=== PATIENT | female | born 1995 | race Two or more races ===

== ENCOUNTER 2018-06-22 17:02 | Inpatient (IN) | payer SELFPAY ==
[2018-06-22] MEDS ORDERED: Ondansetron 4 MG/2 ML SDV IVPUSH PRN (17:09)
[2018-06-22] MEDS ORDERED: Nalbuphine 20 MG/ML 1 ML Syringe IVPUSH PRN (17:09)
[2018-06-22] MEDS ORDERED: Sodium Chloride 0.9% 10 ML Syringe FLUSH PRN (17:09)
[2018-06-22] MEDS ORDERED: Ampicillin 2 GM in Sodium Chloride 0.9% 100 ML IV ONE (17:15)
[2018-06-22] MEDS ORDERED: Lactated Ringers 1,000 ML IV SCH (17:15)
[2018-06-22] MEDS ORDERED: Oxytocin/Lactated Ringers 10 UNIT/1,000 ML BAG IV SCH ×2 (17:15→21:45)
[2018-06-22] MEDS ORDERED: Ampicillin 2 GM AdvVial IV ONE (17:20)
--- NOTE | 2018-06-22 17:42 | PCM.LDHP ---
L&D History of Present Illness - General Date of Service: 06/22/18 Admit Problem/Dx: Patient Status Order with Admit Dx/Problem 06/22/18 17:09 Patient Status [ADT] Routine Admission Diagnosis/Problem Admission Diagnosis/Problem Normal labor Source of Information: Patient History Limitations: Reports: No Limitations - History of Present Illness Introduction:: Patient is a 23 y/o at 38 1/7 wks who presents in labor. Contractions started earlier today. No bleeding or LOF. No other concerns - Related Data Allergies/Adverse Reactions: Allergies Allergy/AdvReac Type Severity Reaction Status Date / Time No Known Allergies Allergy Verified 04/08/14 16:47 Home Medications: Home Meds Acetaminophen [Tylenol] 650 mg PO Q4H PRN #30 tablet 06/10/14 [Rx] Benzocaine/Menthol [Dermoplast Pain Relief [place]] 1 applic TOP ASDIRECTED PRN # 30 canister 06/10/14 [Rx] Docusate Sodium [Colace] 100 mg PO BID PRN #30 cap 06/10/14 [Rx] Ibuprofen [Motrin] 600 mg PO Q4H PRN #50 tablet 06/10/14 [Rx] Lanolin [Lansinoh HPA] 1 applic TOP ASDIRECTED PRN #50 crm 06/10/14 [Rx] Vit with Ca/FA/Iron [ Plus Iron] 1 each PO DAILY #100 tablet [Rx] Witch Mary Ellen [Tucks] 1 pad TOP ASDIRECTED PRN #50 pad 06/10/14 [Rx] Past Medical History - Past Health History Medical/Surgical History: Denies Medical/Surgical History RN WELLNESS History: Reports: : 3 Para: 2 LMP (Approximate): Social & Family History - Tobacco Use Smoking Status *Q: Never Smoker - Alcohol Use Alcohol Use History: No - Recreational Drug Use Recreational Drug Use: No H&P Review of Systems - Review of Systems: Review Of Systems: See Below General: Reports: No Symptoms Pulmonary: Reports: No Symptoms Cardiovascular: Reports: No Symptoms Gastrointestinal: Reports: No Symptoms Genitourinary: Reports: No Symptoms Musculoskeletal: Reports: No Symptoms Psychiatric: Reports: No Symptoms Neurological: Reports: No Symptoms L&D Exam - Exam Exam: See Below - OB Specific Contraction Intensity: Moderate to Strong Movement: Active Heart Tones: Present Heart Tones per Min: 135 Heart Rate (FHR) Variability: Moderate (6-25 bmp) Presentation: Vertex - Moreland Score Moreland Score Cervix Position: Anterior Moreland Score Consistency: Soft Moreland Score Effacement: >80% Moreland Score Dilation: > 5 cm Moreland Score Infant's Station: -1 ,0 Moreland Score Total: 12 - Exam General: Alert, Oriented, Cooperative Lungs: Clear to Auscultation, Normal Respiratory Effort Cardiovascular: Regular Rate, Regular Rhythm GI/Abdominal Exam: Soft, Non-Tender Genitourinary: Normal external exam Extremities: Normal Inspection Skin: Warm, Dry, Intact - Patient Data Lab Results Last 24 hrs: Laboratory Results - last 24 hr 06/22/18 Range/Units 17:26 WBC 8.44 (3.98-10.04) K/mm3 RBC 4.09 (3.98-5.22) M/mm3 Hgb 12.3 (11.2-15.7) gm/L Hct 36.8 (34.1-44.9) % MCV 90.0 (79.4-94.8) fl MCH 30.1 (25.6-32.2) pg MCHC 33.4 (32.2-35.5) g/dl RDW Std Deviation 41.9 (36.4-46.3) fL Plt Count 174 L (182-369) K/mm3 MPV 11.0 (9.4-12.3) fl Result Diagrams: 06/22/18 17:26 - Problem List (1) 38 weeks gestation of SNOMED Code(s): 61062147 ICD Code: Z3A.38 - 38 WEEKS GESTATION OF Status: Acute Current Visit: Yes (2) Normal labor SNOMED Code(s): 82978717 ICD Code: O80 - ENCOUNTER FOR FULL-TERM UNCOMPLICATED DELIVERY; Z37.9 - OUTCOME OF DELIVERY, UNSPECIFIED Status: Acute Current Visit: Yes (3) GBS (group B Streptococcus carrier), +RV culture, currently SNOMED Code(s): 7207585010256, 095297370, 7859503629132 ICD Code: O99.820 - STREPTOCOCCUS B CARRIER STATE COMPLICATING Status: Acute Current Visit: Yes Problem List Initiated/Reviewed/Updated: Yes Orders Last 24hrs: Active Orders 24 hr Category Date Time Status Patient Status [ADT] Routine ADT 06/22/18 17:09 Active Activity as Tolerated [RC] PFP Care 06/22/18 17:09 Active Communication Order [RC] ASDIRECTED Care 06/22/18 17:09 Active Heart Tones [RC] ASDIRECTED Care 06/22/18 17:09 Active Non Stress Test [RC] PER UNIT ROUTINE Care 06/22/18 17:09 Active Notify Provider [RC] PFP Care 06/22/18 17:09 Active Notify Provider [RC] PRN Care 06/22/18 17:09 Active Peripheral IV Care [RC] . DIRECTED Care 06/22/18 17:09 Active Vital Signs [RC] PER UNIT ROUTINE Care 06/22/18 17:09 Active Regular Diet [DIET] Diet 06/22/18 Dinner Active RAPID PLASMA REAGIN,RPR [CHEM] Routine Lab 06/22/18 17:26 Received TYPE AND SCREEN [BBK] Routine Lab 06/22/18 17:26 Received Ampicillin 1 gm Med 06/22/18 21:15 Active Sodium Chloride 0.9% [Normal Saline] 100 ml IV Q4H Ampicillin 2 gm Med 06/22/18 17:15 Active Sodium Chloride 0.9% [Normal Saline] 100 ml IV ONETIME Lactated Ringers [Ringers, Lactated] 1,000 ml Med 06/22/18 17:15 Active IV ASDIRECTED Nalbuphine [Nubain] Med 06/22/18 17:09 Active 10 mg IVPUSH Q2H PRN Ondansetron [Zofran] Med 06/22/18 17:09 Active 4 mg IVPUSH Q4H PRN Oxytocin/Lactated Ringers [Pitocin in LR 10 Units/1,000 Med 06/22/18 17:15 Active ML] 10 unit in 1,000 ml IV .CONTINUOUS Sodium Chloride 0.9% [Saline Flush] Med 06/22/18 17:09 Active 10 ml FLUSH ASDIRECTED PRN Electronic Heart Tones Ext w TOCO [WOMSER] Oth 06/22/18 17:09 Ordered Routine Electronic Heart Tones Internal [WOMSER] Per Unit Oth 06/22/18 17:09 Ordered Routine Peripheral IV Insertion Adult [OM.PC] Routine Oth 06/22/18 17:09 Ordered Resuscitation Status Routine Resus Stat 06/22/18 17:09 Ordered Medication Orders Lactated Ringer's (Ringers, Lactated) 1,000 mls @ 100 mls/hr IV ASDIRECTED MICHELLE Oxytocin/Lactated Ringer's (Pitocin In Lr 10 Units/1,000 Ml) 10 unit in 1,000 mls @ 500 mls/hr IV .CONTINUOUS MICHELLE Ampicillin Sodium 2 gm/ Sodium (Chloride) 100 mls @ 200 mls/hr IV ONETIME ONE Stop: 06/22/18 17:44 Ampicillin Sodium 1 gm/ Sodium (Chloride) 100 mls @ 200 mls/hr IV Q4H MICHELLE Nalbuphine HCl (Nubain) 10 mg IVPUSH Q2H PRN PRN Reason: pain Ondansetron HCl (Zofran) 4 mg IVPUSH Q4H PRN PRN Reason: Nausea/Vomiting Sodium Chloride (Saline Flush) 10 ml FLUSH ASDIRECTED PRN PRN Reason: Keep Vein Open Assessment/Plan Comment:: 23 y/o at 38 1/7 wks who presents in labor * Labs on admission * Will start Ampicillin for GBS positive status * Pain control per patient preference * Anticipate
--- NOTE | 2018-06-22 18:55 | PCM.DEL ---
L & D Note - General Info Date of Service: 06/22/18 - Delivery Note Labor: Spontaneous Delivery Outcome: Livebirth Delivery Method: Spontaneous Vaginal Delivery-Single Delivery Mode: Spontaneous Presentation: Left Occiput Anterior (ANGELLA) Nuchal Cord: Present (Not reduced as delivered quickly) Anesthesia Type: None Amniotic Fluid Description: Clear Episiotomy Type: None Laceration: None Placenta: Intact, Spontaneous Cord: 3 Vessels Estimated Blood Loss: 200 Resuscitation Needed: Yes : Bulb Syringe, Stimulated, Warmed, Vantage Used, Warmer Used Score 1 min: 9 Score 5 min: 9 Delivery Comments (Free Text/Narrative):: Patient found to be complete and began pushing. With maternal pushing effort head delivered from an ANGELLA presentation. Nuchal cord present, but baby quickly expelled and so not reduced. Infant placed on maternal abdomen. Cord clamped and cut. Cord blood obtained. Placenta allowed time to separate and expelled intact. Inspection of the perineum showed no lacerations - General Info Date of Service: 06/22/18 - Patient Data Vitals - Most Recent: Last Vital Signs Temp 37.1 C 06/22/18 17:37 Pulse 78 06/22/18 17:37 Resp 16 06/22/18 17:37 BP 132/76 06/22/18 17:37 Pulse Ox Weight - Most Recent: 92.215 kg Lab Results Last 24 Hours: Laboratory Results - last 24 hr 06/22/18 06/22/18 Range/Units 17:26 17:26 WBC 8.44 (3.98-10.04) K/mm3 RBC 4.09 (3.98-5.22) M/mm3 Hgb 12.3 (11.2-15.7) gm/L Hct 36.8 (34.1-44.9) % MCV 90.0 (79.4-94.8) fl MCH 30.1 (25.6-32.2) pg MCHC 33.4 (32.2-35.5) g/dl RDW Std Deviation 41.9 (36.4-46.3) fL Plt Count 174 L (182-369) K/mm3 MPV 11.0 (9.4-12.3) fl Blood Type O POSITIVE Gel Antibody Screen Negative Med Orders - Current: Current Medications Lactated Ringer's (Ringers, Lactated) 1,000 mls @ 100 mls/hr IV ASDIRECTED MICHELLE Oxytocin/Lactated Ringer's (Pitocin In Lr 10 Units/1,000 Ml) 10 unit in 1,000 mls @ 500 mls/hr IV .CONTINUOUS MICHELLE Ampicillin Sodium 1 gm/ Sodium (Chloride) 100 mls @ 200 mls/hr IV Q4H MICHELLE Nalbuphine HCl (Nubain) 10 mg IVPUSH Q2H PRN PRN Reason: pain Ondansetron HCl (Zofran) 4 mg IVPUSH Q4H PRN PRN Reason: Nausea/Vomiting Sodium Chloride (Saline Flush) 10 ml FLUSH ASDIRECTED PRN PRN Reason: Keep Vein Open Discontinued Medications Ampicillin Sodium (Ampicillin) Confirm Administered Dose 2 gm IV .STK-MED ONE Stop: 06/22/18 17:21 Ampicillin Sodium 2 gm/ Sodium (Chloride) 100 mls @ 200 mls/hr IV ONETIME ONE Stop: 06/22/18 17:44 Last Admin: 06/22/18 17:43 Dose: 200 mls/hr - Problem List & Annotations (1) 38 weeks gestation of SNOMED Code(s): 95310680 Code(s): Z3A.38 - 38 WEEKS GESTATION OF Status: Acute Current Visit: Yes (2) Normal labor SNOMED Code(s): 51238330 Code(s): O80 - ENCOUNTER FOR FULL-TERM UNCOMPLICATED DELIVERY; Z37.9 - OUTCOME OF DELIVERY, UNSPECIFIED Status: Acute Current Visit: Yes (3) GBS (group B Streptococcus carrier), +RV culture, currently SNOMED Code(s): 1342255382633, 572397058, 5257264006938 Code(s): O99.820 - STREPTOCOCCUS B CARRIER STATE COMPLICATING Status: Acute Current Visit: Yes (4) Vaginal delivery SNOMED Code(s): 349952072 Code(s): O80 - ENCOUNTER FOR FULL-TERM UNCOMPLICATED DELIVERY Status: Acute Current Visit: Yes - Problem List Review Problem List Initiated/Reviewed/Updated: Yes - My Orders Last 24 Hours: My Active Orders 06/22/18 17:09 Patient Status [ADT] Routine Activity as Tolerated [RC] PFP Communication Order [RC] ASDIRECTED Heart Tones [RC] ASDIRECTED Non Stress Test [RC] PER UNIT ROUTINE Notify Provider [RC] PFP Notify Provider [RC] PRN Peripheral IV Care [RC] . DIRECTED Vital Signs [RC] PER UNIT ROUTINE Nalbuphine [Nubain] 10 mg IVPUSH Q2H PRN Ondansetron [Zofran] 4 mg IVPUSH Q4H PRN Sodium Chloride 0.9% [Saline Flush] 10 ml FLUSH ASDIRECTED PRN Electronic Heart Tones Ext w TOCO [WOMSER] Routine Electronic Heart Tones Internal [WOMSER] Per Unit Routine Peripheral IV Insertion Adult [OM.PC] Routine Resuscitation Status Routine 06/22/18 17:15 Lactated Ringers [Ringers, Lactated] 1,000 ml IV ASDIRECTED Oxytocin/Lactated Ringers [Pitocin in LR 10 Units/1,000 ML] 10 unit in 1,000 ml IV .CONTINUOUS 06/22/18 17:26 RAPID PLASMA REAGIN,RPR [CHEM] Routine 06/22/18 21:15 Ampicillin 1 gm Sodium Chloride 0.9% [Normal Saline] 100 ml IV Q4H 06/22/18 Dinner Regular Diet [DIET] - Assessment Assessment:: 23 y/o G3 now P3003 PPD#0 from at 38 1/7 wks - Plan Plan:: * Routine cares * Encourage breast feeding * Discharge home in 2 days
[2018-06-22] MEDS ORDERED: Lanolin 100% Cream 7 GM Tube TOP PRN (19:49)
[2018-06-22] MEDS ORDERED: Acetaminophen 325 MG Tab PO PRN (19:49)
[2018-06-22] MEDS ORDERED: Witch Hazel Medicated Pads 100/Jar TOP PRN (19:49)
[2018-06-22] MEDS ORDERED: Docusate Sodium 100 MG Cap PO PRN (19:49)
[2018-06-22] MEDS ORDERED: Benzocaine/Menthol 20%-0.5% Spray 56 GM Canister TOP PRN (19:49)
[2018-06-22] MEDS: Ibuprofen 600 MG Tab PO PRN (19:58)
[2018-06-22] MEDS ORDERED: Oxytocin/Lactated Ringers 10 UNIT/1,000 ML BAG IV ONE ×2 (20:51→20:54)
[2018-06-22] MEDS ORDERED: Methylergonovine 0.2 MG/1 ML Amp ONE (21:08)
[2018-06-22] MEDS ORDERED: Ampicillin 1 GM in Sodium Chloride 0.9% 100 ML IV SCH (21:15)
[2018-06-22] MEDS ORDERED: fentaNYL 100 MCG/2 ML SDV ONE (21:21)
[2018-06-22] MEDS ORDERED: Methylergonovine 0.2 MG/1 ML Amp IM STA (21:30)
[2018-06-22] MEDS ORDERED: fentaNYL 100 MCG/2 ML SDV IVPUSH ONE (21:30)
--- NOTE | 2018-06-22 21:34 | PCM.SN ---
- Free Text/Narrative Note: 2114 Called by nursing due to steady bleeding from patient on fundal assessments. Delivery was about 2.5 hours ago. Nursing already hanging 2nd bag of pitocin. Presented to bedside and gave patient 50 mcg of fentanyl. Examination showed palm sized amount of clot in cervix, uterus otherwise seems to be well contracted. Given IM dose of methergine. Will continue to watch closely and see if further uterotonics warranted. Marilin Luna MD
[2018-06-22] MEDS ORDERED: Carboprost Tromethamine 250 MCG/1 ML Amp ONE (21:42)
[2018-06-22] MEDS ORDERED: Carboprost Tromethamine 250 MCG/1 ML Amp IM ONE (21:43)
[2018-06-22] MEDS ORDERED: Acetaminophen/oxyCODONE 325-5 MG Tab PO PRN (22:48)
[2018-06-23] MEDS: Ibuprofen 600 MG Tab PO PRN ×3 (03:55→17:49)
--- NOTE | 2018-06-23 06:52 | PCM.PNPP ---
- General Info Date of Service: 06/23/18 Functional Status: Reports: Pain Controlled, Tolerating Diet, Ambulating, Urinating - Review of Systems General: Reports: No Symptoms Pulmonary: Reports: No Symptoms Cardiovascular: Reports: No Symptoms Gastrointestinal: Reports: No Symptoms Genitourinary: Reports: No Symptoms Musculoskeletal: Reports: No Symptoms Neurological: Reports: No Symptoms - Patient Data Vital Signs - Most Recent: Last Vital Signs Temp 36.0 C 06/23/18 03:00 Pulse 63 06/23/18 03:00 Resp 17 06/23/18 03:00 BP 130/88 06/23/18 03:00 Pulse Ox 98 06/23/18 03:00 Weight - Most Recent: 92.215 kg I&O - Last 24 Hours: Intake & Output 06/22/18 06/22/18 06/23/18 14:59 22:59 06:59 Intake Total 1000 1000 Balance 1000 1000 Lab Results - Last 24 Hours: Laboratory Results - last 24 hr 06/22/18 06/22/18 Range/Units 17:26 17:26 WBC 8.44 (3.98-10.04) K/mm3 RBC 4.09 (3.98-5.22) M/mm3 Hgb 12.3 (11.2-15.7) gm/L Hct 36.8 (34.1-44.9) % MCV 90.0 (79.4-94.8) fl MCH 30.1 (25.6-32.2) pg MCHC 33.4 (32.2-35.5) g/dl RDW Std Deviation 41.9 (36.4-46.3) fL Plt Count 174 L (182-369) K/mm3 MPV 11.0 (9.4-12.3) fl Blood Type O POSITIVE Gel Antibody Screen Negative Med Orders - Current: Current Medications Acetaminophen (Tylenol) 650 mg PO Q4H PRN PRN Reason: mild pain or fever Benzocaine/Menthol (Dermoplast Pain Relief [place]) 0 gm TOP ASDIRECTED PRN PRN Reason: Perineal Comfort Measure Docusate Sodium (Colace) 100 mg PO BID PRN PRN Reason: Constipation Emollient Ointment (Lansinoh Hpa) 0 gm TOP ASDIRECTED PRN PRN Reason: Sore Nipples Oxytocin/Lactated Ringer's (Pitocin In Lr 10 Units/1,000 Ml) 10 unit in 1,000 mls @ 500 mls/hr IV TITRATE MICHELLE; Protocol Last Titration: 06/22/18 22:00 Dose: 125 mls/hr, 125 mls/hr Ibuprofen (Motrin) 600 mg PO Q6H PRN PRN Reason: Mild pain or fever Last Admin: 06/23/18 03:55 Dose: 600 mg Oxycodone/Acetaminophen (Percocet 325-5 Mg) 2 tab PO Q4H PRN PRN Reason: Pain (severe 7-10) Last Admin: 06/22/18 22:59 Dose: 2 tab Witch Mary Ellen (Tucks) 1 pad TOP ASDIRECTED PRN PRN Reason: Hemorrhoid pain Discontinued Medications Carboprost Tromethamine (Hemabate Ds) Confirm Administered Dose 250 mcg .ROUTE .STK-MED ONE Stop: 06/22/18 21:43 Last Admin: 06/22/18 22:30 Dose: Not Given Carboprost Tromethamine (Hemabate Ds) 250 mcg IM ONETIME ONE Stop: 06/22/18 21:44 Last Admin: 06/22/18 21:45 Dose: 250 mcg Fentanyl (Sublimaze) Confirm Administered Dose 100 mcg .ROUTE .STK-MED ONE Stop: 06/22/18 21:22 Last Admin: 06/22/18 22:30 Dose: Not Given Fentanyl (Sublimaze) 50 mcg IVPUSH ONETIME ONE Stop: 06/22/18 21:31 Last Admin: 06/22/18 21:25 Dose: 50 mcg Lactated Ringer's (Ringers, Lactated) 1,000 mls @ 100 mls/hr IV ASDIRECTED MICHELLE Oxytocin/Lactated Ringer's (Pitocin In Lr 10 Units/1,000 Ml) 10 unit in 1,000 mls @ 500 mls/hr IV .CONTINUOUS MICHELLE Last Admin: 06/22/18 18:44 Dose: 500 mls/hr Ampicillin Sodium 2 gm/ Sodium (Chloride) 100 mls @ 200 mls/hr IV ONETIME ONE Stop: 06/22/18 17:44 Last Admin: 06/22/18 17:43 Dose: 200 mls/hr Ampicillin Sodium 1 gm/ Sodium (Chloride) 100 mls @ 200 mls/hr IV Q4H MICHELLE Oxytocin/Lactated Ringer's (Pitocin In Lr 10 Units/1,000 Ml) Confirm Administered Dose 10 unit in 1,000 mls @ as directed IV .STK-MED ONE Stop: 06/22/18 20:52 Last Admin: 06/22/18 22:28 Dose: Not Given Oxytocin/Lactated Ringer's (Pitocin In Lr 10 Units/1,000 Ml) Confirm Administered Dose 10 unit in 1,000 mls @ as directed IV .STK-MED ONE Stop: 06/22/18 20:55 Last Admin: 06/22/18 22:28 Dose: Not Given Methylergonovine Maleate (Methergine) Confirm Administered Dose 0.2 mg .ROUTE .STK-MED ONE Stop: 06/22/18 21:09 Last Admin: 06/22/18 22:29 Dose: Not Given Methylergonovine Maleate (Methergine) 0.2 mg IM NOW STA Stop: 06/22/18 21:31 Last Admin: 06/22/18 21:12 Dose: 0.2 mg Nalbuphine HCl (Nubain) 10 mg IVPUSH Q2H PRN PRN Reason: pain Ondansetron HCl (Zofran) 4 mg IVPUSH Q4H PRN PRN Reason: Nausea/Vomiting Sodium Chloride (Saline Flush) 10 ml FLUSH ASDIRECTED PRN PRN Reason: Keep Vein Open - Infant Interaction Infant Disposition, : in Room with Family Infant Interaction: Holding Feeding: Breastfed ; Nursed Well Support Person: Significant Other - Recovery Exam Fundal Tone: Firm Fundal Level: At Umbilicus Fundal Placement: Midline Lochia Amount: Small Lochia Color: Rubra/Red Perineum Description: Intact, Minimal Bruising/Swelling Episiotomy/Laceration: None Bladder Status: Voiding Urinary Elimination: Other (see below) Other Urinary Elimination, : XLG void (#3 pp void) - Exam General: Alert, Oriented, Cooperative GI/Abdominal Exam: Soft, Non-Tender Extremities: Normal Inspection Skin: Warm, Dry, Intact - Problem List & Annotations (1) 38 weeks gestation of SNOMED Code(s): 83022562 Code(s): Z3A.38 - 38 WEEKS GESTATION OF Status: Acute Current Visit: Yes (2) Normal labor SNOMED Code(s): 50454750 Code(s): O80 - ENCOUNTER FOR FULL-TERM UNCOMPLICATED DELIVERY; Z37.9 - OUTCOME OF DELIVERY, UNSPECIFIED Status: Acute Current Visit: Yes (3) GBS (group B Streptococcus carrier), +RV culture, currently SNOMED Code(s): 8449130316165, 128772461, 7547728989640 Code(s): O99.820 - STREPTOCOCCUS B CARRIER STATE COMPLICATING Status: Acute Current Visit: Yes (4) Vaginal delivery SNOMED Code(s): 098395542 Code(s): O80 - ENCOUNTER FOR FULL-TERM UNCOMPLICATED DELIVERY Status: Acute Current Visit: Yes - Problem List Review Problem List Initiated/Reviewed/Updated: Yes - My Orders Last 24 Hours: My Active Orders 06/22/18 17:09 Heart Tones [RC] ASDIRECTED Vital Signs [RC] PER UNIT ROUTINE Resuscitation Status Routine 06/22/18 17:26 RAPID PLASMA REAGIN,RPR [CHEM] Routine 06/22/18 19:49 Activity as Tolerated [RC] PER UNIT ROUTINE Vital Signs [RC] 03,09,15,21 Acetaminophen [Tylenol] 650 mg PO Q4H PRN Benzocaine/Menthol [Dermoplast Pain Relief [place]] See Dose Instructions TOP ASDIRECTED PRN Docusate Sodium [Colace] 100 mg PO BID PRN Ibuprofen [Motrin] 600 mg PO Q6H PRN Lanolin [Lansinoh HPA] See Dose Instructions TOP ASDIRECTED PRN Witch Mary Ellen [Tucks] 1 pad TOP ASDIRECTED PRN Assess Lochia [WOMSER] Per Unit Routine Assess Uterine Involution [WOMSER] Per Unit Routine Breast Pump [WOMSER] Per Unit Routine Heat Therapy [OM.PC] PRN Ice Therapy [OM.PC] Per Unit Routine Perineal Care [OM.PC] Per Unit Routine Peripheral IV Discontinue [OM.PC] Routine Sitz Bath [OM.PC] Per Unit Routine 06/22/18 21:45 Oxytocin/Lactated Ringers [Pitocin in LR 10 Units/1,000 ML] 10 unit in 1,000 ml IV TITRATE 06/22/18 22:48 Acetaminophen/oxyCODONE [Percocet 325-5 MG] 2 tab PO Q4H PRN 06/22/18 Dinner Regular Diet [DIET] 06/23/18 19:49 Heat Therapy [OM.PC] PRN - Assessment Assessment:: 23 y/o G3 now P3003 PPD#1 from at 38 1/7 wks - Plan Plan:: * Routine cares * Encourage breast feeding * Bleeding improved with uterotonics overnight. Continue to monitor * Discharge home tomorrow
[2018-06-24] MEDS: Ibuprofen 600 MG Tab PO PRN ×2 (06:51→16:14)
--- NOTE | 2018-06-24 06:59 | PCM.DCSUM1 ---
Discharge Summary - Discharge Data Discharge Date: 06/24/18 Discharge Disposition: Home, Self-Care 01 Condition: Good - Discharge Diagnosis/Problem(s) (1) 38 weeks gestation of SNOMED Code(s): 55601495 ICD Code: Z3A.38 - 38 WEEKS GESTATION OF Status: Acute Current Visit: Yes (2) Normal labor SNOMED Code(s): 13964619 ICD Code: O80 - ENCOUNTER FOR FULL-TERM UNCOMPLICATED DELIVERY; Z37.9 - OUTCOME OF DELIVERY, UNSPECIFIED Status: Acute Current Visit: Yes (3) GBS (group B Streptococcus carrier), +RV culture, currently SNOMED Code(s): 5888658937561, 390000753, 9954872245422 ICD Code: O99.820 - STREPTOCOCCUS B CARRIER STATE COMPLICATING Status: Acute Current Visit: Yes (4) Vaginal delivery SNOMED Code(s): 561949492 ICD Code: O80 - ENCOUNTER FOR FULL-TERM UNCOMPLICATED DELIVERY Status: Acute Current Visit: Yes - Patient Summary/Data Complications: None Consults: None Recommended Follow-up Testing/Procedures: Follow up with Dr. Craft in 2 weeks Hospital Course: Patient is a 23 y/o at 38 1/7 wks who presented in active labor. She made quick progress to complete dilation and underwent an uncomplicated . See delivery note. About 2 hours after delivery had a slight increase in bleeding. This was managed with IM methergine and hemabate. She otherwise did well and was discharged home on PPD#2 - Patient Instructions Diet: Regular Diet as Tolerated Activity: As Tolerated Activity, Other: Pelvic Rest for 3 weeks Driving: May Drive Today Showering/Bathing: May Shower Showering/Bathing, Other: May bathe Notify Provider of: Fever, Increased Pain, Swelling and Redness, Drainage, Nausea and/or Vomiting - Discharge Plan *PRESCRIPTION DRUG MONITORING PROGRAM REVIEWED*: Not Applicable *COPY OF PRESCRIPTION DRUG MONITORING REPORT IN PATIENT GUNNER: Not Applicable Home Medications: Home Meds Docusate Sodium [Colace] 100 mg PO BID PRN #30 cap 06/10/14 [Rx] Ibuprofen [Motrin] 600 mg PO Q4H PRN #50 tablet 06/10/14 [Rx] Vit with Ca/FA/Iron [ Plus Iron] 1 each PO DAILY #100 tablet [Rx] Referrals: Raleigh Craft MD [Primary Care Provider] - (2 weeks for check ) - Discharge Summary/Plan Comment DC Time >30 min.: No - Patient Data Vitals - Most Recent: Last Vital Signs Temp 36.6 C 06/24/18 03:00 Pulse 72 06/24/18 03:00 Resp 16 06/24/18 03:00 BP 97/58 L 06/24/18 03:00 Pulse Ox 100 06/24/18 03:00 Weight - Most Recent: 92.215 kg I&O - Last 24 hours: Intake & Output 06/23/18 06/23/18 06/24/18 14:59 22:59 06:59 Intake Total 220 Balance 220 Lab Results - Last 24 hrs: Laboratory Results - last 24 hr 06/22/18 Range/Units 17:26 RPR Non-reactive (NONREACTIVE) Med Orders - Current: Current Medications Acetaminophen (Tylenol) 650 mg PO Q4H PRN PRN Reason: mild pain or fever Benzocaine/Menthol (Dermoplast Pain Relief [place]) 0 gm TOP ASDIRECTED PRN PRN Reason: Perineal Comfort Measure Docusate Sodium (Colace) 100 mg PO BID PRN PRN Reason: Constipation Emollient Ointment (Lansinoh Hpa) 0 gm TOP ASDIRECTED PRN PRN Reason: Sore Nipples Oxytocin/Lactated Ringer's (Pitocin In Lr 10 Units/1,000 Ml) 10 unit in 1,000 mls @ 500 mls/hr IV TITRATE MICHELLE; Protocol Last Titration: 06/22/18 22:00 Dose: 125 mls/hr, 125 mls/hr Ibuprofen (Motrin) 600 mg PO Q6H PRN PRN Reason: Mild pain or fever Last Admin: 06/24/18 06:51 Dose: 600 mg Oxycodone/Acetaminophen (Percocet 325-5 Mg) 2 tab PO Q4H PRN PRN Reason: Pain (severe 7-10) Last Admin: 06/22/18 22:59 Dose: 2 tab Witch Mary Ellen (Tucks) 1 pad TOP ASDIRECTED PRN PRN Reason: Hemorrhoid pain Discontinued Medications Carboprost Tromethamine (Hemabate Ds) Confirm Administered Dose 250 mcg .ROUTE .STK-MED ONE Stop: 06/22/18 21:43 Last Admin: 06/22/18 22:30 Dose: Not Given Carboprost Tromethamine (Hemabate Ds) 250 mcg IM ONETIME ONE Stop: 06/22/18 21:44 Last Admin: 06/22/18 21:45 Dose: 250 mcg Fentanyl (Sublimaze) Confirm Administered Dose 100 mcg .ROUTE .STK-MED ONE Stop: 06/22/18 21:22 Last Admin: 06/22/18 22:30 Dose: Not Given Fentanyl (Sublimaze) 50 mcg IVPUSH ONETIME ONE Stop: 06/22/18 21:31 Last Admin: 06/22/18 21:25 Dose: 50 mcg Lactated Ringer's (Ringers, Lactated) 1,000 mls @ 100 mls/hr IV ASDIRECTED MICHELLE Oxytocin/Lactated Ringer's (Pitocin In Lr 10 Units/1,000 Ml) 10 unit in 1,000 mls @ 500 mls/hr IV .CONTINUOUS MICHELLE Last Admin: 06/22/18 18:44 Dose: 500 mls/hr Ampicillin Sodium 2 gm/ Sodium (Chloride) 100 mls @ 200 mls/hr IV ONETIME ONE Stop: 06/22/18 17:44 Last Admin: 06/22/18 17:43 Dose: 200 mls/hr Ampicillin Sodium 1 gm/ Sodium (Chloride) 100 mls @ 200 mls/hr IV Q4H MICHELLE Oxytocin/Lactated Ringer's (Pitocin In Lr 10 Units/1,000 Ml) Confirm Administered Dose 10 unit in 1,000 mls @ as directed IV .STK-MED ONE Stop: 06/22/18 20:52 Last Admin: 06/22/18 22:28 Dose: Not Given Oxytocin/Lactated Ringer's (Pitocin In Lr 10 Units/1,000 Ml) Confirm Administered Dose 10 unit in 1,000 mls @ as directed IV .STK-MED ONE Stop: 06/22/18 20:55 Last Admin: 06/22/18 22:28 Dose: Not Given Methylergonovine Maleate (Methergine) Confirm Administered Dose 0.2 mg .ROUTE .STK-MED ONE Stop: 06/22/18 21:09 Last Admin: 06/22/18 22:29 Dose: Not Given Methylergonovine Maleate (Methergine) 0.2 mg IM NOW STA Stop: 06/22/18 21:31 Last Admin: 06/22/18 21:12 Dose: 0.2 mg Nalbuphine HCl (Nubain) 10 mg IVPUSH Q2H PRN PRN Reason: pain Ondansetron HCl (Zofran) 4 mg IVPUSH Q4H PRN PRN Reason: Nausea/Vomiting Sodium Chloride (Saline Flush) 10 ml FLUSH ASDIRECTED PRN PRN Reason: Keep Vein Open
[2018-06-24 13:16] VITALS: BP 108/71
== END 2018-06-24 18:37 | disposition home or self-care (01) | DRG 807 ==
LOC: JD.OBCHECK 17:02 → JD.OB 17:09 → OBSVTOIN 18:44 → JD.OB 18:45
PROVIDERS: ADMIT Obstetrics & Gynecology; ATTEND Obstetrics & Gynecology
PROC: 10E0XZZ Delivery of Products of Conception, External Approach (ICD-10-PCS; principal; 2018-06-22)
PROC: 6A550ZT Pheresis of Cord Blood Stem Cells, Single (ICD-10-PCS; 2018-06-22)
PROC: 0UCG7ZZ Extirpation of Matter from Vagina, Via Natural or Artificial Opening (ICD-10-PCS; 2018-06-22)
DX: O99.824 Streptococcus B carrier state complicating childbirth (principal); Z37.0 Single live birth; O69.81X0 Labor and delivery complicated by cord around neck, without compression, not applicable or unspecified; Z3A.38 38 weeks gestation of pregnancy; O72.1 Other immediate postpartum hemorrhage
CPT/HCPCS: 36415; 59025; 59409; 85027; 86592; 86850; 86900; 86901; A9270-GY; J0290; J2210; J2590; J3010; J7030